=== PATIENT | female | born 1995 | race Caucasian/White ===

== ENCOUNTER 2020-01-14 16:17 | Emergency (ER) | payer OTHER, SELFPAY ==
[2020-01-14 16:58] VITALS: BP 147/73; PULSE 91; RESP 16; TEMP 36.4; O2SAT 99; BMI 36.6
--- NOTE | 2020-01-14 17:18 | USR_ITS ---
PROCEDURE INFORMATION: Exam: US Duplex Artery and Vein of the Abdominal and/or Reproductive Organs, Complete Exam date and time: 01/14/2020 10:19 PM Age: 24 years old Clinical indication: Pelvic pain; Prior surgery; Surgery date: 6+ months; Surgery type: C section; Additional info: Positive , bleeding TECHNIQUE: Imaging protocol: Real-time duplex ultrasound scan of the arterial and venous flow of the abdominal and/or reproductive organs with B-mode, color Doppler flow and spectral waveform analysis with image documentation. Exam focused on the region of clinical concern. Complete exam. Duplex images required to evaluate vascular conditions. COMPARISON: No relevant prior studies available. FINDINGS: Other vasculature: Doppler evaluation left ovary was performed and demonstrates good arterial and venous flow. Doppler evaluation of the right ovary was performed and demonstrates good arterial and venous flow. Ovaries: The left ovary measures 4.5 x 3.1 x 3.2 cm. The right ovary measures 2.2 x 3.0 x 3.0 cm. There is a septated left ovarian cyst that measures 2.8 x 2.0 x 2.0 cm. No left ovarian torsion. There is a solid echogenic nodule in the right adnexa that measures 3.1 x 2.0 x 2.2 cm. No right ovarian torsion. IMPRESSION: Unremarkable bilateral ovarian Doppler. No torsion. PROCEDURE INFORMATION: Exam: US First Trimester, Transabdominal and US , Transvaginal Exam date and time: 01/14/2020 10:19 PM Age: 24 years old Clinical indication: Pelvic pain; Prior surgery; Surgery date: 6+ months; Surgery type: C section; Additional info: Positive , bleeding TECHNIQUE: Imaging protocol: Real-time transabdominal obstetrical ultrasound of the maternal pelvis and a first trimester , less than 14 weeks 0 days, with image documentation. Transvaginal imaging was used for better evaluation of the fetus and adnexa. COMPARISON: No relevant prior studies available. FINDINGS: Gestation: No gestational sac is identified in the uterus or either adnexa. Embryonic/ heart rate: Not visualized Placenta: Not visualized Amniotic fluid: Not visualized. BIOMETRY: Gestational age (AUA): Gestational sac is not visualized. MATERNAL: Uterus: Uterus is unremarkable measuring 8.7 x 4.8 x 6.4 cm. Endometrial stripe measures 10.3 mm. The uterus is otherwise unremarkable. Cervix: Nabothian cysts are noted in the cervix. Right adnexa: The right ovary measures 2.2 x 3.0 x 3.0 cm. There is a echogenic nodule in the right adnexa that measures 3.1 x 2.0 x 2.2 cm.This does not demonstrate in the central vascularity or color flow in this may be a hemorrhagic or proteinaceous cyst or solid nodule such is a pedunculated fibroid or endometrioma. This is not a simple cyst or ectopic . Doppler evaluation of the right ovary was performed and demonstrates good arterial and venous flow. No right ovarian torsion. Left adnexa: The left ovary measures 4.5 x 3.1 x 3.2 cm. There is a septated left ovarian cyst that measures 2.8 x 2.0 x 2.0 cm. Doppler evaluation left ovary was performed and demonstrates good arterial and venous flow. No left ovarian torsion. Intraperitoneal space: There is a trace amount of fluid in the pelvis. US/US pelvic with transvaginal IMPRESSION: 1. No gestational sac is identified in the uterus or either adnexa. This is a of uncertain location. Follow-up beta hCG/ultrasound is recommended since early intrauterine or ectopic cannot be excluded with this exam given the positive . 2. Echogenic nodule right adnexa adjacent to the right ovary without visualized color flow ir vascularity. This appearance may reflect a hemorrhagic or proteinaceous cyst, endometrioma or pedunculated uterine fibroid. There is a septated left ovarian cyst.
[2020-01-14 18:03] LABS: Basophils # 0.1 10^3/uL (0.0-0.1); Basophils % 0.4 %; Eosinophils # 0.4 10^3/uL (0.0-0.8); Eosinophils % 3.5 %; Hematocrit 43.9 % (37.0-47.0); Hemoglobin 14.1 g/dL (11.5-15.3); Lymphocytes # 2.9 10^3/uL (0.8-4.8); Lymphocytes % 24.1 %; Mean Corpuscular HGB Conc 32.1 g/dL (30.0-36.0); Mean Corpuscular Hemoglobin 29.4 pg (28.0-34.0); Mean Corpuscular Volume 91.6 fL (81-99); Monocytes # 0.6 10^3/uL (0.2-0.9); Monocytes % 4.8 %; Neutrophils # 7.87 10^3/uL (1.8-7.7); Neutrophils % 66.7 %; Nucleated Red Blood Cells % 0 %; Platelet Count 331 10^3/cmm (130-400); Red Blood Count 4.79 10^6/uL (4.1-5.3); Red Cell Distribution Width 13.2 % (12.1-15.1); White Blood Count 11.8 10^3/uL (4.0-10.0)
[2020-01-14 18:33] LABS: Alanine Aminotransferase 15 U/L (0-33); Albumin Level 4.1 g/dL (3.5-5.2); Alkaline Phosphatase 140 IU/L (35-105); Anion Gap 13.5 (5-19); Aspartate Amino Transferase 13 U/L (0-32); Blood Urea Nitrogen 8 mg/dL (6-20); Calcium 9.3 mg/dL (8.5-10.5); Carbon Dioxide 26 mmol/L (22-29); Chloride 105 mmol/L (98-107); Glomerular Filtration Rate 120.8 mL/min (90-130); Glucose 101 mg/dL (65-115); Osmolality Calculated 288 mOsm/kg (285-295); Potassium 4.5 mmol/L (3.5-5.1); Sodium 140 mmol/L (136-145); Total Bilirubin 0.2 mg/dL (0.15-1.2); Total Protein 7.1 g/dL (6.6-8.7)
[2020-01-14 19:23] VITALS: BP 115/76; PULSE 88; RESP 14; TEMP 36.8; O2SAT 96
--- NOTE | 2020-01-14 21:30 | ED_ITS ---
HPI - General: Chief complaint: Vaginal Bleeding Stated complaint: vaginal bleeding-possible miscarriage Time Seen by Provider: 01/14/20 21:30 Source: patient Mode of arrival: ambulatory Limitations: no limitations History of Present Illness: HPI Narrative: Patient comes in for irregular bleeding for the last 2 weeks. Patient reports a positive test yesterday. Patient denies any pain or fever. Patient appears well. Patient appears no acute distress. Patient reports a positive test done yesterday. Date of Last Menstrual Period: 12/16/19 Review of Systems General: Reports: 10 or more systems reviewed and unremarkable except in HPI and below : Reports: vaginal bleeding [facility] ED PFSH: Social History (Updated 01/14/20 @ 17:03 by Wilber Phillips RN) Smoking and tobacco status: current every day smoker cigarettes Packs smoked per day: 0.5 Alcohol intake: never Female Reproductive History: Date of last menstrual period: 12/16/19 Physical Exam Const: COMMON NORMALS: no acute distress and patient oriented x3 GENERAL APPEARANCE: cooperative HENMT: COMMON NORMALS: normocephalic and Normal external nose present HEAD & SCALP: normal to inspection and normocephalic NOSE: Normal external nose present Eye: GENERAL EYE: appearance normal, both eyes and all related structures Neck/C-Spine: COMMON NORMALS: full ROM Chest: COMMONS NORMALS: normal inspection of the chest Resp: COMMON NORMALS: normal respiratory effort EFFORT & INSPECTION: Yes able to speak in complete sentences Cardio: COMMON NORMALS: regular rate and regular rhythm RATE: regular rate RHYTHM: regular rhythm GI: COMMON NORMALS: non-tender : COMMON NORMALS: Yes no CVA tenderness and Yes normal appearance of the vagina BLADDER/KIDNEY EXAM: Yes no CVA tenderness SPECULUM EXAM - CERVIX: Yes Cervical os open and Yes Cervical bleeding OB/EXTERNAL & SPECULUM: Cervical os open Back/Pelvis: COMMON NORMALS: no CVA tenderness and thoracic and lumbar spine normal to inspection Extremity: COMMON NORMALS: normal to inspection Neuro: COMMON NORMALS: patient oriented x3 and moves all extremities Psych: COMMON NORMALS: mental status grossly normal and cooperative Skin: COMMON NORMALS: no rashes or lesions noted GENERAL SKIN EXAM: no rashes or lesions noted Course ED course: 0015, patient wished to go home and have us call report to her regarding the ultrasound. Patient was stable without any signs of serious illness at this time. Bleeding was minimal. Vital signs were normal. Nicholas Kimball, nurse practitioner. Vital Signs: Vital signs: Vital Signs Temperature 98.2 F 01/14/20 19:23 Pulse Rate 78 01/14/20 22:59 Respiratory Rate 17 01/14/20 22:59 Blood Pressure 110/49 01/14/20 22:59 Pulse Oximetry 98 01/14/20 22:59 MDM - OB/Uterine Contractions MDM Narrative: Medical decision making narrative: Patient came in for concerns of miscarriage. On exam patient was abdomen was soft nontender. Vital signs were normal. Differential diagnosis includes spontaneous miscarriage, vaginiti s, threatened . Rh type was positive. hCG quantitative was 400. Wet prep was positive for clue cells. CBC was normal. CMP was normal. Ultrasound of the pelvis noted no gestational sac. Reviewed exam with patient with recommendations for treatment and follow-up. Patient reported understanding and agreed to plan. Patient was treated for bacterial vaginosis with 2 g dose of Flagyl. Lab Data: Labs: Lab Results 01/14/20 01/14/20 01/14/20 Range/Units 17:50 17:50 17:50 WBC 11.8 H (4.0-10.0) 10^3/ uL RBC 4.79 (4.1-5.3) 10^6/u L Hgb 14.1 (11.5-15.3) g/dL Hct 43.9 (37.0-47.0) % MCV 91.6 (81-99) fL MCH 29.4 (28.0-34.0) pg MCHC 32.1 (30.0-36.0) g/dL RDW 13.2 (12.1-15.1) % Plt Count 331 (130-400) 10^3/c mm MPV 10.0 (7.4-10.4) fL Neut % (Auto) 66.7 % Lymph % (Auto) 24.1 % Richardson % (Auto) 4.8 % Eos % (Auto) 3.5 % Baso % (Auto) 0.4 % Neut # (Auto) 7.87 H (1.8-7.7) 10^3/u L Lymph # (Auto) 2.9 (0.8-4.8) 10^3/u L Richardson # (Auto) 0.6 (0.2-0.9) 10^3/u L Eos # (Auto) 0.4 (0.0-0.8) 10^3/u L Baso # (Auto) 0.1 (0.0-0.1) 10^3/u L Nucleated RBC % (a uto) 0 % Nucleated RBCs # 0.0 /100WBC Sodium 140 (136-145) mmol/L Potassium 4.5 (3.5-5.1) mmol/L Chloride 105 (98-107) mmol/L Carbon Dioxide 26 (22-29) mmol/L Anion Gap 13.5 (5-19) BUN 8 (6-20) mg/dL Creatinine 0.6 (0.5-0.9) mg/dL GFR Calculation 120.8 (90-130) mL/min Glucose 101 (65-115) mg/dL Calculated Osmolal ity 288 (285-295) mOsm/k g Calcium 9.3 (8.5-10.5) mg/dL Total Bilirubin 0.2 (0.15-1.2) mg/dL AST 13 (0-32) U/L ALT 15 (0-33) U/L Alkaline Phosphata se 140 H (35-105) IU/L Total Protein 7.1 (6.6-8.7) g/dL Albumin 4.1 (3.5-5.2) g/dL Globulin 3.0 (1.3-4.6) g/dL Ser , Graciela i-Qnt 402.30 mIU/mL Blood Type A Positive Rho(D) Type Positive Discharge Plan Discharge Patient Disposition: Home Clinical Impression: Spontaneous miscarriage Condition: Stable Discharge Orders: Discharge Order (Routine); Ordered 01/15/20 Ordered By: Nicholas Kimball Discharge Diet: Usual diet Discharge Activity: Increase activity as tolerated Patient Instructions: Spontaneous Miscarriage (ED) Activity Restrictions/Additional Instructions: Drink plenty of fluids. Healthy diet and exercise. Use acetaminophen or ibuprofen for pain. Monitor for fever, or bleeding with saturation of greater than 1 pad an hour. Follow-up with primary RENAL TECHNICIAN on Friday. Return to the emergency department for new concerns, high fever, or bleeding greater than 1 pad an hour. Coding Level of Care Code ED Talent Rep for Chg Fwd Exam Comprehensive
[2020-01-14 21:31] VITALS: BP 127/33; PULSE 86; RESP 16; O2SAT 98
--- NOTE | 2020-01-14 22:06 | PC.NURSE ---
Assist with Vaginal exam per Wm Jigar BEEP
[2020-01-14 22:13] VITALS: BP 119/59; PULSE 93; RESP 17; O2SAT 100
[2020-01-14 22:59] VITALS: BP 110/49; PULSE 78; RESP 17; O2SAT 98
[2020-01-14] MEDS: metroNIDAZOLE 500 MG Tablet 2000 MG PO (23:16)
[2020-01-15 00:15] VITALS: BP 103/60; PULSE 85; RESP 16; TEMP 36.8; O2SAT 98
== END 2020-01-15 00:17 | disposition home or self-care (01) ==
PROVIDERS: Emergency Provider Nurse Practitioner Family
DX: O03.9 Complete or unspecified spontaneous abortion without complication (principal); F17.210 Nicotine dependence, cigarettes, uncomplicated
CPT/HCPCS: 12345; 36415; 76830; 76856; 80053; 84702; 85025; 86900; 87070; 87205; 87210; 87491; 87591; 87661; 99283